=== PATIENT | female | born 1950 | race Caucasian/White ===

== ENCOUNTER → 2021-02-02 | Outpatient (CLI) | payer MEDICARE ==
--- NOTE | 2021-02-02 17:00 | RAD ---
EXAM: Lower extremity arterial Doppler sonogram with ankle-brachial indices (VOLODYMYR). HISTORY: Nonpalpable pedal pulses. Peripheral vascular disease. TECHNIQUE: Doppler sonographic evaluation of the lower extremities was performed and pressure reading s were assessed. FINDINGS: Right brachial pressure: 160 mmHg Left brachial pressure: 155 mmHg Right ankle pressure (dorsalis pedis artery): 195 mmHg Right ankle pressure (posterior tibial artery): 172 mmHg Right VOLODYMYR: 1.2 Left ankle pressure (dorsalis pedis artery): 166 mmHg Left ankle pressure (posterior tibial artery): 199 mmHg Left VOLODYMYR: 1.2 There are biphasic and triphasic waveforms throughout the lower extremity arteries. There are normal peak systolic velocities throughout the lower extremity arteries. There is minimal atherosclerotic pl aque primarily within the right superficial femoral and common femoral arteries. IMPRESSION: 1. Normal bilateral ankle-brachial indices. 2. No evidence of hemodynamically significant stenosis or occlusion involving the lower extremity art eries. Electronically signed by: Mimi Bella MD (02/02/2021 4:57 PM) [id number]
== END ==
LOC: US 15:41
PROVIDERS: ATTEND Podiatrist
DX: I70.201 Unspecified atherosclerosis of native arteries of extremities, right leg (principal); R09.89 Other specified symptoms and signs involving the circulatory and respiratory systems
CPT/HCPCS: 93922; 93925